=== PATIENT | male | born 1995 | race Caucasian/White ===

== ENCOUNTER 2018-10-03 15:34 | Emergency (ER) | payer MEDICAID ==
[~2018-10-03] VITALS: Ht 185.4 cm; Wt 77.1 kg
[2018-10-03 15:42] VITALS: BP_SYST 142
[2018-10-03] MEDS ORDERED: IBUPROFEN 600 MG TABLET PO ONE (16:00)
[2018-10-03 16:40] VITALS: BP_SYST 142
== END 2018-10-03 17:06 | disposition home or self-care (01) ==
LOC: SED 15:34
DX: S63.601A Unspecified sprain of right thumb, initial encounter (principal); X50.9XXA Other and unspecified overexertion or strenuous movements or postures, initial encounter; Y93.83 Activity, rough housing and horseplay; Y92.89 Other specified places as the place of occurrence of the external cause; Y99.8 Other external cause status
CPT/HCPCS: 73140-TC; 99283